=== PATIENT | female | born 1940 | race Caucasian/White ===

== ENCOUNTER 2023-03-11 08:00 | Outpatient (CLI) | payer BC ==
[~2023-03-11] VITALS: Ht 152.4 cm; Wt 57.2 kg
== END 2023-03-11 16:00 | disposition home or self-care (01) ==
LOC: SLB 08:00 → EDSTATUS 03-15 07:30
PROVIDERS: ATTEND Orthopaedic Surgery Sports Medicine
DX: Z01.812 Encounter for preprocedural laboratory examination (principal); M19.011 Primary osteoarthritis, right shoulder; M25.511 Pain in right shoulder
CPT/HCPCS: 87081

== ENCOUNTER 2023-04-14 07:17 | Inpatient (IN) | payer BC ==
[~2023-04-14] VITALS: Ht 152.4 cm; Wt 57.2 kg
[2023-04-14] MEDS ORDERED: GABAPENTIN 300 MG CAPSULE PO ONE (07:30)
[2023-04-14] MEDS ORDERED: ACETAMINOPHEN 500 MG TABLET PO ONE (07:30)
[2023-04-14] MEDS ORDERED: ACETAMINOPHEN 500 MG TABLET ONE (07:44)
[2023-04-14] MEDS ORDERED: GABAPENTIN 300 MG CAPSULE ONE (07:44)
[2023-04-14] MEDS ORDERED: CEFAZOLIN SOD 2 GM in D5W 50 ML IV ONE (08:00)
[2023-04-14 08:13] LABS: BILIRUBIN,URINE NEGATIVE (NEGATIVE); CLARITY/URINE CLEAR (CLEAR); COLOR,URINE YELLOW (YELLOW); GLUCOSE,URINE NEGATIVE (NEGATIVE); KETONES,URINE NEGATIVE (NEGATIVE); LEUKOCYTE ESTERASE ,URINE NEGATIVE (NEGATIVE); NITRITE, URINE NEGATIVE (NEGATIVE); PH,URINE 5.5 (5.0-8.0); PROTEIN URINE NEGATIVE (NEGATIVE); UROBILINOGEN,URINE 0.2 (0.2-1.0)
[2023-04-14 08:28] LABS: BLOOD, URINE TRACE (NEGATIVE)
[2023-04-14 08:44] LABS: RBC,URINE 0-3 /HPF (0-3)
[2023-04-14 08:45] LABS: BACTERIA,URINE FEW /HPF (None Seen); CALCIUM OXALATE CRYSTALS,UR None Seen /HPF (None Seen); CALCIUM PHOSPHATE CRYSTALS,UR None Seen /HPF (None Seen); COARSE GRANULAR CASTS,URINE None Seen /LPF (None Seen); FINE GRANULAR CASTS,URINE None Seen /LPF (None Seen); HYALINE CASTS, URINE None Seen /LPF (None Seen); MUCUS,URINE None Seen /LPF (None Seen); OTHER CASTS, URINE None Seen /LPF (None Seen); OTHER CRYSTALS,URINE None Seen /HPF (None Seen); TRICHOMONAS,URINE None Seen /HPF (None Seen); TRIPLE PHOSPHATE CRYSTAL,UR None Seen /HPF (None Seen); URIC ACID CRYSTALS,URINE None Seen /HPF (None Seen); URINE AMORPHOUS PHOSPHATES None Seen /HPF (None Seen); URINE AMORPHOUS URATE None Seen /HPF (None Seen); WAXY CASTS,URINE None Seen /LPF (None Seen); WBC,URINE NONE SEEN /HPF (0-3); YEAST,URINE None Seen /HPF (None Seen)
[2023-04-14] MEDS ORDERED: EZET10TA30 PO (09:02)
[2023-04-14] MEDS ORDERED: HYDR-3927 PO (09:02)
[2023-04-14] MEDS ORDERED: HYDR-4039 PO (09:02)
[2023-04-14] MEDS ORDERED: MAGN400T10 PO (09:02)
[2023-04-14] MEDS ORDERED: METO-544 (09:02)
[2023-04-14] MEDS ORDERED: OMEP40CA20 PO (09:02)
[2023-04-14] MEDS ORDERED: ALLO300T2 PO (09:02)
[2023-04-14] MEDS ORDERED: NEU300 PO (09:02)
[2023-04-14] MEDS ORDERED: CHOL2400 MC (09:02)
[2023-04-14] MEDS ORDERED: CALC-823 PO (09:02)
[2023-04-14] MEDS ORDERED: MIRA50TA PO (09:02)
[2023-04-14] MEDS ORDERED: MAGN250T35 PO (09:56)
[2023-04-14] MEDS ORDERED: VITD2000 PO (09:56)
[2023-04-14] MEDS ORDERED: CALC-1112 PO (09:56)
[2023-04-14] MEDS ORDERED: SUCCINYLCHOLINE CHLORIDE 20 MG/ML(QUELICIN) ONE (10:37)
[2023-04-14] MEDS ORDERED: LR 1,000 ML IV.SOLN IV ONE (10:37)
[2023-04-14] MEDS ORDERED: METOCLOPRAMIDE HCL 10 MG/2 ML VIAL ONE (10:37)
[2023-04-14] MEDS ORDERED: DEXAMETHASONE SOD PHOSPHATE 4 MG/ML VIAL ONE (10:37)
[2023-04-14] MEDS ORDERED: fentaNYL CITRATE/PF 100 MCG/2 ML AMP ONE (10:37)
[2023-04-14] MEDS ORDERED: VANCOMYCIN HCL 1000 MG/VIAL IV ONE (10:37)
[2023-04-14] MEDS ORDERED: SUGAMMADEX SODIUM 200 MG/2 ML VIAL IV ONE (10:37)
[2023-04-14] MEDS ORDERED: DESFLURANE 15 MIN GAS INH ONE (10:37)
[2023-04-14] MEDS ORDERED: ROCURONIUM BROMIDE 10 MG/ML (ZEMURON) ONE (10:37)
[2023-04-14] MEDS ORDERED: NS IRRIG SOLN 1000 ML IR ONE (10:37)
[2023-04-14] MEDS ORDERED: BUPIVACAINE /PF 0.25% 30 ML VIAL INJ ONE (10:37)
[2023-04-14] MEDS ORDERED: PROPOFOL 200MG/ 20ML VIAL (DIPRIVAN) IV ONE (10:37)
[2023-04-14] MEDS ORDERED: HYDROmorphone 2 MG/ML VIAL ONE (10:37)
[2023-04-14] MEDS ORDERED: ONDANSETRON HCL 4 MG/2 ML VIAL ONE (10:37)
[2023-04-14] MEDS ORDERED: ACETAMINOPHEN I.V. 1000 MG 100 ML IV ONE (10:59)
[2023-04-14] MEDS ORDERED: oxyCODONE HCL 5 MG TABLET PO PRN ×2 (11:00)
[2023-04-14] MEDS ORDERED: HYDROmorphone 1 MG/ML INJ. CARTRIDGE IVP PRN ×5 (11:00→12:45)
[2023-04-14] MEDS ORDERED: traMADol HCL HCL 50 MG TABLET (ULTRAM) PO PRN (11:00)
[2023-04-14] MEDS ORDERED: LORATADINE 10 MG TABLET PO PRN (11:00)
[2023-04-14] MEDS ORDERED: ONDANSETRON HCL 4 MG/2 ML VIAL IVP PRN ×2 (11:45→12:45)
[2023-04-14] MEDS ORDERED: NALOXONE HCL 0.4 MG/ML AMP (NARCAN) IVP PRN ×5 (12:45→13:15)
[2023-04-14] MEDS ORDERED: HYDROmorphone 2 MG/ML VIAL IVP PRN (12:45)
[2023-04-14] MEDS: HYDROmorphone 1 MG/ML INJ. CARTRIDGE ONE ×2 (12:53→15:04)
[2023-04-14] MEDS ORDERED: METOCLOPRAMIDE HCL 10 MG/2 ML VIAL IVP PRN (13:15)
[2023-04-14] MEDS ORDERED: LACTULOSE 20 GM/30 ML UDC PO PRN (13:15)
[2023-04-14] MEDS ORDERED: BISACODYL 10 MG/SUPPOSITORY RC PRN (13:15)
[2023-04-14] MEDS ORDERED: DIPHENHYDRAMINE HCL 25 MG CAPSULE PO PRN (13:15)
[2023-04-14] MEDS ORDERED: NS 500 ML IV ONE (14:00)
[2023-04-14 14:40] VITALS: BP_SYST 117; PULSE 69; RESP 18; TEMP 98.4; O2SAT 99
[2023-04-14] MEDS: KETOROLAC TROMETHAMINE 10 MG TABLET (TORADOL) PO SCH (18:20)
[2023-04-14] MEDS: ceFAZolin SODIUM 2 GM in D5W 50 ML IV SCH (18:20)
[2023-04-14] MEDS: ACETAMINOPHEN 500 MG TABLET PO SCH (18:22)
[2023-04-14 20:15] VITALS: BP_SYST 121; PULSE 76; RESP 16; TEMP 97.8; O2SAT 96
[2023-04-14] MEDS: SENNOSIDES/DOCUSATE SODIUM 1 TAB TABLET(SENOKOT-S) PO SCH (21:39)
[2023-04-15] MEDS: ACETAMINOPHEN 500 MG TABLET PO SCH ×3 (00:35→08:14)
[2023-04-15] MEDS: KETOROLAC TROMETHAMINE 10 MG TABLET (TORADOL) PO SCH ×3 (00:35→08:13)
[2023-04-15] MEDS: ceFAZolin SODIUM 2 GM in D5W 50 ML IV SCH ×2 (00:36→08:15)
[2023-04-15 01:51] VITALS: BP_SYST 107; PULSE 70; RESP 18; TEMP 98.4; O2SAT 98
[2023-04-15 07:26] LABS: ANION GAP 5 (5-15); CALCIUM 8.7 mg/dL (8.4-11.0); CHLORIDE 105 mmol/L (98-107); CREATININE 1.03 mg/dL (0.55-1.30); GLUCOSE 121 mg/dL (74-106); UREA NITROGEN, BLOOD 23 mg/dL (8-21)
[2023-04-15 08:00] VITALS: BP_SYST 121; PULSE 90; RESP 18; TEMP 97.8; O2SAT 93
[2023-04-15] MEDS: SENNOSIDES/DOCUSATE SODIUM 1 TAB TABLET(SENOKOT-S) PO SCH (08:12)
[2023-04-15] MEDS ORDERED: ASPIRIN 81 MG TAB.CHEW PO SCH (09:00)
[2023-04-15] MEDS ORDERED: CEFA500C PO (10:12)
[2023-04-15 10:45] VITALS: BP_SYST 110; PULSE 53; RESP 17; TEMP 97.5; O2SAT 93
[2023-04-15 11:10] VITALS: BP_SYST 111; PULSE 95; RESP 18; TEMP 98.6; O2SAT 78
[2023-04-15 11:45] VITALS: BP_SYST 111; PULSE 78; RESP 18; TEMP 98.6
== END 2023-04-15 12:00 | disposition home or self-care (01) | DRG 483 ==
LOC: SMU 07:17
PROVIDERS: ADMIT Orthopaedic Surgery Sports Medicine; ATTEND Orthopaedic Surgery Sports Medicine
PROC: 0RRJ00Z Replacement of Right Shoulder Joint with Reverse Ball and Socket Synthetic Substitute, Open Approach (ICD-10-PCS; principal; 2023-04-14 10:37)
DX: M19.011 Primary osteoarthritis, right shoulder (principal); M75.21 Bicipital tendinitis, right shoulder
CPT/HCPCS: 36415; 76001; 80048; 81000; 86886; 86900; 86901; 87081; 88304; 88311; 96379; J0131; J0330; J0690; J1100; J1170; J2405; J2704; J2765; J3010; J3370; J3490; J7050; J7060; J7120

== ENCOUNTER 2023-05-29 12:31 | Inpatient (IN) | payer BC ==
[~2023-05-29] VITALS: Ht 152.4 cm; Wt 59.0 kg
[2023-05-29 12:31] VITALS: BP_SYST 150; PULSE 80; RESP 20; TEMP 98.9; O2SAT 94
[~2023-05-29 12:31] MED LIST: ALLO300T2 PO; CALC-1112 PO; CEFA500C PO; EZET10TA30 PO; HYDR-3927 PO; HYDR-4039 PO; MAGN250T35 PO; METO-544; MIRA50TA PO; NEU300 PO; OMEP40CA20 PO; VITD2000 PO
[2023-05-29] MEDS ORDERED: cefTRIAXone 1 GM IVPB PREMIX 50 ML IV ONE (13:00)
[2023-05-29 13:18] LABS: BASOPHILS % (AUTO) 0.2 % (0.0-2.0); EOSINOPHILS % (AUTO) 0.1 % (0.0-4.0); HEMATOCRIT 32.4 % (36-48); HEMOGLOBIN 10.2 g/dL (12.0-16.0); LYMPHOCYTES # (AUTO) 16.8 K/uL (1.0-5.5); MEAN CORPUSCULAR HEMOGLOBIN 29 pg (27-31); MEAN CORPUSCULAR HGB CONC 32 % (32-36); MEAN CORPUSCULAR VOLUME 91 fL (79.0-98.0); MONOCYTES # (AUTO) 0.5 K/uL (0.0-1.0); MONOCYTES % (AUTO) 2.1 % (1.7-9.3); NEUTROPHILS # (AUTO) 5.1 K/uL (1.8-7.7); NEUTROPHILS % (AUTO) 22.6 % (40.0-70.0); PLATELET COUNT (AUTO) 230 K/uL (130-430); RED BLOOD CELL COUNT(AUTO) 3.56 MIL/uL (4.2-6.2); RED CELL DISTRIBUTION WIDTH 14.2 % (9.0-15.0); WHITE BLOOD COUNT (AUTO) 22.3 K/uL (4.8-10.8)
[2023-05-29 13:20] LABS: BILIRUBIN,URINE NEGATIVE (NEGATIVE); CLARITY/URINE Clear (CLEAR); COLOR,URINE YELLOW (YELLOW); GLUCOSE,URINE NEGATIVE (NEGATIVE); KETONES,URINE 3+ (NEGATIVE); NITRITE, URINE NEGATIVE (NEGATIVE); PROTEIN URINE 2+ (NEGATIVE); UROBILINOGEN,URINE 0.2 (0.2-1.0)
[2023-05-29 13:25] LABS: BLOOD, URINE TRACE (NEGATIVE); LEUKOCYTE ESTERASE ,URINE NEGATIVE (NEGATIVE)
[2023-05-29 13:28] LABS: ANION GAP 14 (5-15); CALCIUM 8.7 mg/dL (8.4-11.0); CARBON DIOXIDE 22 mmol/L (23-29); CHLORIDE 98 mmol/L (98-107); CREATININE 0.94 mg/dL (0.55-1.30); GLUCOSE 82 mg/dL (74-106); POTASSIUM 3.8 mmol/L (3.5-5.1); SODIUM SERUM 134 mmol/L (136-145); UREA NITROGEN, BLOOD 14 mg/dL (8-21)
[2023-05-29 13:35] LABS: ALANINE AMINOTRANSFERASE 5 U/L (12-78); ALBUMIN 2.7 g/dL (3.4-4.8); ASPARTATE AMINOTRANSFERASE 22 U/L (10-37); TOTAL BILIRUBIN 0.6 mg/dL (0.0-1.0); TOTAL PROTEIN, SERUM 6.6 g/dL (6.4-8.3)
[2023-05-29 13:37] LABS: INFLUENZA TYPE B NEGATIVE (NEGATIVE)
[2023-05-29 13:39] LABS: INFLUENZA TYPE A positive (NEGATIVE)
[2023-05-29 13:58] LABS: BACTERIA,URINE RARE /HPF (None Seen); WBC,URINE 0-3 /HPF (0-3)
[2023-05-29] MEDS ORDERED: NACL 0.9% 1,000 ML IV ONE (14:15)
[2023-05-29] MEDS ORDERED: DEXAMETHASONE SOD PHOSPHATE 10 MG/ML VIAL IVP ONE (14:15)
[2023-05-29] MEDS ORDERED: KETOROLAC TROMETHAMINE 30 MG VIAL IVP ONE (14:15)
[2023-05-29] MEDS ORDERED: OSELTAMIVIR PHOSPHATE 75 MG CAPSULE PO ONE (14:15)
[2023-05-29] MEDS ORDERED: guaiFENesin/DEXTROMETHORPHAN 10 ML UDC PO ONE (14:30)
[2023-05-29] MEDS ORDERED: MAGNESIUM OXIDE 400 MG TABLET PO ONE (20:00)
[2023-05-29] MEDS ORDERED: LORazepam 2 MG/ML VIAL IVP ONE (20:00)
[2023-05-29 20:50] VITALS: BP_SYST 157; PULSE 70; PULSE 98; RESP 18; RESP 20; TEMP 98.1; O2SAT 98
[2023-05-29] MEDS ORDERED: cefTRIAXone 1 GM IVPB PREMIX 50 ML IV SCH (23:45)
[2023-05-30] MEDS: D5/0.45 NS 1,000 ML IV SCH ×2 (00:53→13:14)
[2023-05-30 00:57] VITALS: BP_SYST 130; PULSE 87; RESP 19; TEMP 97.5; O2SAT 95
[2023-05-30 08:00] VITALS: BP_SYST 137; PULSE 60; RESP 18; TEMP 97.5; O2SAT 95
[2023-05-30] MEDS ORDERED: OSELTAMIVIR PHOSPHATE 75 MG CAPSULE PO ONE (09:30)
[2023-05-30] MEDS ORDERED: CHOLECALCIFEROL (VITAMIN D3) 5,000 UNIT TABLET PO ONE (10:15)
[2023-05-30] MEDS ORDERED: HYDROcodone/ACETAMIN 10-325 MG TAB PO PRN (10:15)
[2023-05-30] MEDS ORDERED: NALOXONE HCL 0.4 MG/ML AMP (NARCAN) IVP PRN (10:15)
[2023-05-30] MEDS ORDERED: ALLOPURINOL 300 MG TABLET (ZYLOPRIM) PO ONE (10:30)
[2023-05-30] MEDS ORDERED: hydrALAZINE HCL 25 MG TABLET PO ONE (10:30)
[2023-05-30] MEDS ORDERED: EZETIMIBE 10 MG TABLET PO ONE (10:30)
[2023-05-30] MEDS ORDERED: GABAPENTIN 300 MG CAPSULE PO ONE (10:30)
[2023-05-30] MEDS ORDERED: PANTOPRAZOLE SODIUM 40 MG TAB PO ONE (10:30)
[2023-05-30] MEDS: DECADRON 4 MG TABLET PO SCH (11:11)
[2023-05-30 12:00] VITALS: BP_SYST 135; PULSE 65; RESP 19; TEMP 97.6; O2SAT 97
[2023-05-30] MEDS ORDERED: cefTRIAXone 1 GM IVPB PREMIX 50 ML IV SCH (13:00)
[2023-05-30] MEDS ORDERED: ENOXAPARIN SODIUM 30 MG/0.3 ML SYRINGE SUBCUT ONE (13:00)
[2023-05-30 13:49] VITALS: O2SAT 95
[2023-05-30 14:16] LABS: HEMATOCRIT 32.5 % (36-48); HEMOGLOBIN 10.4 g/dL (12.0-16.0); MEAN CORPUSCULAR HEMOGLOBIN 29 pg (27-31); MEAN CORPUSCULAR HGB CONC 32 % (32-36); MEAN CORPUSCULAR VOLUME 91 fL (79.0-98.0); PLATELET COUNT (AUTO) 268 K/uL (130-430); RED BLOOD CELL COUNT(AUTO) 3.59 MIL/uL (4.2-6.2); RED CELL DISTRIBUTION WIDTH 14.3 % (9.0-15.0)
[2023-05-30 14:31] LABS: WHITE BLOOD COUNT (AUTO) 34.5 K/uL (4.8-10.8)
[2023-05-30 14:50] LABS: BASOPHILS % (MANUAL) 0 % (0-2); EOSINOPHILS % (MANUAL) 0 % (0-7); LYMPHOCYTES % (MANUAL) 70 % (20-46); MONOCYTES % (MANUAL) 6 % (0-11); PLATELET ESTIMATE ADEQUATE (ADEQUATE)
[2023-05-30] MEDS: FLUCONAZOLE 100 mg/ NS 50 ML IV SCH (14:54)
[2023-05-30 16:00] VITALS: BP_SYST 136; PULSE 62; RESP 18; TEMP 97.4; O2SAT 96
[2023-05-30] MEDS: PIPERACILLIN/TAZO 4.5GM/DEX-IS 100 ML IV SCH ×2 (16:00→23:43)
[2023-05-30 20:00] VITALS: BP_SYST 125; PULSE 69; RESP 18; TEMP 98.2; O2SAT 95
[2023-05-30] MEDS: OSELTAMIVIR PHOSPHATE 75 MG CAPSULE PO SCH (21:01)
[2023-05-31 00:46] VITALS: BP_SYST 138; PULSE 60; RESP 15; TEMP 98; O2SAT 96
[2023-05-31] MEDS: D5/0.45 NS 1,000 ML IV SCH ×2 (02:25→17:29)
[2023-05-31 05:27] LABS: BASOPHILS % (AUTO) 0.1 % (0.0-2.0); HEMOGLOBIN 9.2 g/dL (12.0-16.0); LYMPHOCYTES % (AUTO) 68.3 % (20.5-51.5); MEAN CORPUSCULAR HEMOGLOBIN 30 pg (27-31); MEAN CORPUSCULAR HGB CONC 33 % (32-36); MEAN CORPUSCULAR VOLUME 90 fL (79.0-98.0); MONOCYTES # (AUTO) 0.5 K/uL (0.0-1.0); NEUTROPHILS # (AUTO) 7.8 K/uL (1.8-7.7); NEUTROPHILS % (AUTO) 29.6 % (40.0-70.0); PLATELET COUNT (AUTO) 225 K/uL (130-430); RED BLOOD CELL COUNT(AUTO) 3.11 MIL/uL (4.2-6.2); RED CELL DISTRIBUTION WIDTH 14.1 % (9.0-15.0); WHITE BLOOD COUNT (AUTO) 26.3 K/uL (4.8-10.8)
[2023-05-31 05:47] LABS: ANION GAP 8 (5-15); CALCIUM 8.8 mg/dL (8.4-11.0); CARBON DIOXIDE 26 mmol/L (23-29); CHLORIDE 105 mmol/L (98-107); CREATININE 1.03 mg/dL (0.55-1.30); GLUCOSE 162 mg/dL (74-106); POTASSIUM 3.7 mmol/L (3.5-5.1); SODIUM SERUM 139 mmol/L (136-145); UREA NITROGEN, BLOOD 19 mg/dL (8-21)
[2023-05-31] MEDS: PIPERACILLIN/TAZO 4.5GM/DEX-IS 100 ML IV SCH (06:22)
[2023-05-31] MEDS: GABAPENTIN 300 MG CAPSULE PO SCH (08:48)
[2023-05-31] MEDS: OSELTAMIVIR PHOSPHATE 75 MG CAPSULE PO SCH ×2 (08:48→20:10)
[2023-05-31] MEDS: EZETIMIBE 10 MG TABLET PO SCH (08:49)
[2023-05-31] MEDS: CHOLECALCIFEROL (VITAMIN D3) 5,000 UNIT TABLET PO SCH (08:49)
[2023-05-31] MEDS: ENOXAPARIN SODIUM 30 MG/0.3 ML SYRINGE SUBCUT SCH (08:49)
[2023-05-31] MEDS: PANTOPRAZOLE SODIUM 40 MG TAB PO SCH (08:49)
[2023-05-31 08:51] VITALS: BP_SYST 142; PULSE 60; RESP 17; TEMP 97.7; O2SAT 98
[2023-05-31] MEDS: hydrALAZINE HCL 25 MG TABLET PO SCH (08:54)
[2023-05-31] MEDS ORDERED: CHOLECALCIFEROL (VITAMIN D3) 2,000 UNIT TABLET PO SCH (09:00)
[2023-05-31] MEDS: ALLOPURINOL 300 MG TABLET (ZYLOPRIM) PO SCH (10:12)
[2023-05-31] MEDS: DECADRON 4 MG TABLET PO SCH (10:12)
[2023-05-31 11:47] VITALS: BP_SYST 158; PULSE 62; RESP 19; TEMP 98.6; O2SAT 98
[2023-05-31] MEDS: FLUCONAZOLE 100 mg/ NS 50 ML IV SCH (14:23)
[2023-05-31 16:00] VITALS: BP_SYST 145; PULSE 74; RESP 19; TEMP 99; O2SAT 93
[2023-05-31 20:00] VITALS: BP_SYST 150; PULSE 68; RESP 18; TEMP 98.2; O2SAT 93
[2023-05-31 20:30] VITALS: O2SAT 93
[2023-06-01 01:01] VITALS: BP_SYST 152; PULSE 68; RESP 18; TEMP 98.6; O2SAT 95
[2023-06-01 05:03] LABS: HEMATOCRIT 27.9 % (36-48); LYMPHOCYTES # (AUTO) 22.3 K/uL (1.0-5.5); LYMPHOCYTES % (AUTO) 72.1 % (20.5-51.5); MEAN CORPUSCULAR HEMOGLOBIN 29 pg (27-31); MEAN CORPUSCULAR HGB CONC 32 % (32-36); MEAN CORPUSCULAR VOLUME 91 fL (79.0-98.0); MONOCYTES # (AUTO) 0.7 K/uL (0.0-1.0); MONOCYTES % (AUTO) 2.2 % (1.7-9.3); NEUTROPHILS # (AUTO) 7.9 K/uL (1.8-7.7); NEUTROPHILS % (AUTO) 25.7 % (40.0-70.0); PLATELET COUNT (AUTO) 243 K/uL (130-430); RED BLOOD CELL COUNT(AUTO) 3.08 MIL/uL (4.2-6.2); RED CELL DISTRIBUTION WIDTH 14.2 % (9.0-15.0)
[2023-06-01] MEDS: D5/0.45 NS 1,000 ML IV SCH ×2 (05:05→18:35)
[2023-06-01 05:11] LABS: WHITE BLOOD COUNT (AUTO) 30.9 K/uL (4.8-10.8)
[2023-06-01 05:22] LABS: ANION GAP 10 (5-15); CALCIUM 8.3 mg/dL (8.4-11.0); CARBON DIOXIDE 24 mmol/L (23-29); CHLORIDE 105 mmol/L (98-107); CREATININE 0.96 mg/dL (0.55-1.30); GLUCOSE 144 mg/dL (74-106); POTASSIUM 3.3 mmol/L (3.5-5.1); SODIUM SERUM 139 mmol/L (136-145); UREA NITROGEN, BLOOD 17 mg/dL (8-21)
[2023-06-01 08:00] VITALS: BP_SYST 151; PULSE 58; RESP 18; TEMP 98.2; O2SAT 95
[2023-06-01 09:26] LABS: ABG O2 SAT% ESTIMATE 97.1 % (94.0-100.0); BLOOD GAS BASE EXCESS -1.6 mmol/L (-3.0-3.0); BLOOD GAS HCO3 19.8 mmol/L (21.0-27.0); BLOOD GAS PCO2 25.8 mmHg (35.0-45.0)
[2023-06-01 09:35] LABS: ALLEN'S TEST POSITIVE (P); BLOOD GAS PH 7.503 (7.350-7.450)
[2023-06-01] MEDS: DECADRON 4 MG TABLET PO SCH (10:25)
[2023-06-01] MEDS: EZETIMIBE 10 MG TABLET PO SCH (10:26)
[2023-06-01] MEDS: ENOXAPARIN SODIUM 30 MG/0.3 ML SYRINGE SUBCUT SCH (10:26)
[2023-06-01] MEDS: CHOLECALCIFEROL (VITAMIN D3) 5,000 UNIT TABLET PO SCH (10:27)
[2023-06-01] MEDS: PANTOPRAZOLE SODIUM 40 MG TAB PO SCH (10:28)
[2023-06-01] MEDS: OSELTAMIVIR PHOSPHATE 75 MG CAPSULE PO SCH ×2 (10:28→20:19)
[2023-06-01] MEDS: GABAPENTIN 300 MG CAPSULE PO SCH (10:29)
[2023-06-01] MEDS: hydrALAZINE HCL 25 MG TABLET PO SCH (10:35)
[2023-06-01] MEDS: ALLOPURINOL 300 MG TABLET (ZYLOPRIM) PO SCH (11:40)
[2023-06-01 12:00] VITALS: BP_SYST 150; PULSE 56; RESP 18; TEMP 97.8; O2SAT 96
[2023-06-01 16:20] VITALS: BP_SYST 151; PULSE 61; RESP 17; TEMP 98; O2SAT 96
[2023-06-01] MEDS: FLUCONAZOLE 100 mg/ NS 50 ML IV SCH (16:55)
[2023-06-01 20:00] VITALS: BP_SYST 162; PULSE 55; RESP 18; TEMP 98.4; O2SAT 95
[2023-06-01] MEDS: METOPROLOL SUCCINATE 50 MG TAB.SR.24H (TOPROL XL) PO SCH (23:49)
[2023-06-02 00:30] VITALS: BP_SYST 158; PULSE 52; RESP 18; TEMP 97.9; O2SAT 94
[2023-06-02 06:49] LABS: HEMATOCRIT 27.2 % (36-48); HEMOGLOBIN 8.8 g/dL (12.0-16.0); LYMPHOCYTES # (AUTO) 20.2 K/uL (1.0-5.5); MEAN CORPUSCULAR HEMOGLOBIN 29 pg (27-31); MEAN CORPUSCULAR HGB CONC 32 % (32-36); MEAN CORPUSCULAR VOLUME 91 fL (79.0-98.0); MONOCYTES # (AUTO) 0.5 K/uL (0.0-1.0); MONOCYTES % (AUTO) 2.1 % (1.7-9.3); NEUTROPHILS # (AUTO) 4.8 K/uL (1.8-7.7); NEUTROPHILS % (AUTO) 18.9 % (40.0-70.0); PLATELET COUNT (AUTO) 239 K/uL (130-430); RED CELL DISTRIBUTION WIDTH 14.3 % (9.0-15.0); WHITE BLOOD COUNT (AUTO) 25.6 K/uL (4.8-10.8)
[2023-06-02 07:05] LABS: ANION GAP 7 (5-15); CALCIUM 8.2 mg/dL (8.4-11.0); CARBON DIOXIDE 27 mmol/L (23-29); CHLORIDE 105 mmol/L (98-107); CREATININE 0.86 mg/dL (0.55-1.30); GLUCOSE 164 mg/dL (74-106); POTASSIUM 3.2 mmol/L (3.5-5.1); SODIUM SERUM 139 mmol/L (136-145); UREA NITROGEN, BLOOD 13 mg/dL (8-21)
[2023-06-02 08:35] VITALS: BP_SYST 130; PULSE 62; RESP 14; TEMP 98.2; O2SAT 96
[2023-06-02] MEDS: ENOXAPARIN SODIUM 30 MG/0.3 ML SYRINGE SUBCUT SCH (10:42)
[2023-06-02] MEDS ORDERED: Zinc Sulfate PO (10:42)
[2023-06-02] MEDS ORDERED: CHOL500013 PO (10:42)
[2023-06-02] MEDS: hydrALAZINE HCL 25 MG TABLET PO SCH (10:44)
[2023-06-02] MEDS: METOPROLOL SUCCINATE 50 MG TAB.SR.24H (TOPROL XL) PO SCH (10:44)
[2023-06-02] MEDS: ALLOPURINOL 300 MG TABLET (ZYLOPRIM) PO SCH (10:45)
[2023-06-02] MEDS: OSELTAMIVIR PHOSPHATE 75 MG CAPSULE PO SCH (10:45)
[2023-06-02] MEDS: PANTOPRAZOLE SODIUM 40 MG TAB PO SCH (10:45)
[2023-06-02] MEDS: GABAPENTIN 300 MG CAPSULE PO SCH (10:45)
[2023-06-02] MEDS: CHOLECALCIFEROL (VITAMIN D3) 5,000 UNIT TABLET PO SCH (10:45)
[2023-06-02] MEDS: DECADRON 4 MG TABLET PO SCH (10:45)
[2023-06-02] MEDS: EZETIMIBE 10 MG TABLET PO SCH (10:46)
[2023-06-02 11:12] VITALS: O2SAT 96
[2023-06-02 11:45] VITALS: BP_SYST 146; PULSE 53; RESP 16; TEMP 98.3; O2SAT 95
[2023-06-02 12:25] VITALS: BP_SYST 146; PULSE 53; RESP 16; TEMP 98.3; O2SAT 95
== END 2023-06-02 13:40 | disposition home or self-care (01) | DRG 871 ==
LOC: SED 12:31 → STU 15:54 → SMU 05-31 14:10
PROVIDERS: ADMIT Specialist; ATTEND Specialist
PROC: XW033E5 Introduction of Remdesivir Anti-infective into Peripheral Vein, Percutaneous Approach, New Technology Group 5 (ICD-10-PCS; principal; 2023-05-31)
DX: A41.9 Sepsis, unspecified organism (principal); J10.08 Influenza due to other identified influenza virus with other specified pneumonia; U07.1 COVID-19; J12.82 Pneumonia due to coronavirus disease 2019; C91.10 Chronic lymphocytic leukemia of B-cell type not having achieved remission; I10 Essential (primary) hypertension; E78.5 Hyperlipidemia, unspecified; R09.02 Hypoxemia; M10.9 Gout, unspecified; Z88.1 Allergy status to other antibiotic agents; Z91.040 Latex allergy status; Z79.899 Other long term (current) drug therapy
CPT/HCPCS: 36415; 36600; 71045; 80048; 80053; 81000; 81003; 82803; 82962; 83605; 83880; 84484; 85007; 85025; 85027; 85379; 87040; 87086; 93005; 93970; 96365; 99285; G0378; G9035; J0696; J1100; J1450; J1650; J1885; J2060; J2543; J7030; J7050; J7060; J8540